=== PATIENT | female | born 2005 | race Hispanic/Latino ===

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

== ENCOUNTER 2024-03-15 16:13 | Emergency (ER) | payer OTHER, SELFPAY ==
[2024-03-15 16:14] VITALS: BP 151/93
[2024-03-15 17:34] VITALS: BP 136/97
[2024-03-15] MEDS: BENADRYL 50 MG PO (17:49)
[2024-03-15] MEDS: DELTASONE 50 MG PO (17:49)
[2024-03-15] MEDS: COMPAZINE 10 MG PO (17:49)
[2024-03-15] MEDS: TORADOL 10 MG PO (17:49)
[2024-03-15 18:00] VITALS: BP 130/84
--- NOTE | 2024-03-15 19:44 | ED.GENMED ---
History of Present Illness
General
Chief Complaint: Headache
Source: patient and family
Exam Limitations: none
Time Seen by Provider: 03/15/24 17:25
Nursing documentation reviewed up to this point in time: agreed with
History of Present Illness
History of Present Illness:
Patient is a 18-year-old female presents to the emergency department complaining of a bad headache for the past 4 days. Patient has been sound sensitive. Patient states the pain is in the back of her head and comes around to the temporal regions
and then in the back of her eyes and the piercing pain in her left eye. Patient has a history of ocular migraines that is described as sharp pain in her left eye. Patient is normally nauseous with this. Patient has been nauseous with these
headaches. Patient states she gets up in the morning about 4 hours later develops the pain. Patient when the pain is bad gets emotional waves of anxiety and depression. Patient does suffer from anxiety and depression as a baseline but states it
becomes very strong and she is crying with the pain. Patient denies any recent injuries. Patient denies fever but admits to chills. Patient does get photophobic. Patient is nauseous all the time but it gets worse with her headaches. Patient is
not vomiting. Patient denies smoking, alcohol or caffeine. Patient does do an edible at nighttime to sleep. Patient denies any focal weakness or ataxia. Patient denies any visual changes other than photophobia or speech difficulties. Patient
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 Patient has seen a neurologist in the past but not for the past couple years. Patient has had a MRI in the past but not for the past 2 years
Past History
Past History
ED Past Medical History: Psychiatric (Anxiety/depression, PTSD) and Other (High functioning autism, ocular migraines, POTS, Chiari 0 malformation)
ED Past Surgical History: Tonsilectomy and Urological
Social History
Tobacco: Non-smoker
Alcohol: None
Drug: Marijuana
Review of Systems
Review of Systems
All Other Systems: ROS reviewed and negative except as documented in HPI and ROS
Constitutional: Reports fatigue and chills; Denies fever
EENT: Denies sore throat, mouth pain or runny nose
Respiratory: Reports no symptoms
Cardiac: Reports no symptoms
ABD/GI: Reports nausea; Denies abdominal pain, vomiting, diarrhea, constipated or anorexia
: Reports no symptoms
Musculoskeletal: Reports no symptoms
Skin: Reports no symptoms
Neurological: Reports headache; Denies dizzy, weakness or numbness
Psychiatric: Reports anxiety
Phy Exam
Physical Exam
Physical Exam:
Physical Exam
General: mild distress, alert and appropriate, well nourished, well hydrated
HENT: Normocephalic with mild tenderness around the occipital tubercles bilaterally, supple with no lymphadenopathy, no thyromegaly. Mild paravertebral cervical muscle spasm without bony tenderness or deformity. Full range
of motion without pain
Eyes: Clear sclera, conjuctiva without injection, extraocular muscles intact, visual green intact
Heart: Regular rhythm and rate. No S3, S4. No murmur.
Lungs: No respiratory distress, no stridor, lung sounds clear and equal bilaterally
Abdomen: Soft, nontender, no organomegaly, no CVA tenderness, BS good
Neuro: Alert and oriented x 3, CN II - XII intact, no motor focality, no cerebellar dysfunction
Skin: no rash
Psychiatric: well kept. interactive and cooperative
Extremities: No edema, cyanosis, tenderness, Good and equal peripheral pulses.
Course
Orders/Labs/Results
Orders:
Orders
03/15/24 17:37
Diphenhydramine [Benadryl] 50 mg PO NOW STA
Prednisone [Deltasone] 50 mg PO NOW STA
Prochlorperazine [Compazine] 10 mg PO NOW STA
03/15/24 17:42
Ketorolac [Toradol] 10 mg PO NOW STA
Vital Signs
Initial and Last Documented VS:
Initial Vital Signs
Temp Pulse Resp BP Pulse Ox
98.4 F 82 18 151/93 98
03/15/24 16:14 03/15/24 16:14 03/15/24 16:14 03/15/24 16:14 03/15/24 16:14
Last Documented Vital Signs
Temp Pulse Resp BP Pulse Ox
98.4 F 82 18 130/84 99
03/15/24 16:14 03/15/24 16:14 03/15/24 16:14 03/15/24 18:00 03/15/24 18:30
*Radiology
Radiology exam reviewed: other (na)
*Pulse Oximetry
Patient hypoxic: no
*EKG
Interpreted by ED Provider?: NA
*Summer Law Clerk Interpretation
Rate: Summer Law Clerk- N/A
*Critical Care Note
Total Time (30-74mins, 75-104mins- exclusive of procedures): Not Applicable
Update Note
Update Note:
Patient is feeling better. Will place the patient on anti-inflammatories and refer to neurology.
ED Attending Note
-
Portions of this chart may have been created with voice recognition software.� Occasional wrong word or��sound alike� substitutions may have occurred due to the inherent limitations of voice recognition software.
Discharge Plan
Departure
Patient Disposition: Home (Routine Discharge)
Date of Disposition: 03/15/24
Time of Disposition: 19:51
Patient with high blood pressure during this ER visit?: No
Condition: Fair
Covid-19: Not Applicable
Discharge Problem:
Headache, Occipital neuralgia
Instructions: Headache, Adult (DC)
Prescriptions:
New
prednisone 20 mg tablet
20 mg PO BID Qty: 10 0RF
ketorolac 10 mg tablet
10 mg PO QID PRN (Reason: pain) 5 Days Qty: 20 0RF
prochlorperazine maleate [Compazine] 10 mg tablet
10 mg PO Q6H PRN (Reason: headache) Qty: 20 0RF
Rx Instructions:
Take with Benadryl 25mg
Referrals:
Binh Carmona MD [Active] - Call in 1-3 days for appt
Marina Brooks DO [Family Provider] - Follow up in 2-3 days
Interventions
Interventions:
*Risk Screen - Suicide Last Done: 03/15/24 16:14
*General Assessment Last Done: 03/15/24 16:14
*Neglect/Abuse Screening Last Done: 03/15/24 16:14
*ED COVID-19 Vaccine History Last Done: 03/15/24 16:14
ED- Neurological Assessment Last Done: 03/15/24 17:29
Discharge Date and Time
Print Language: LATVIAN
== END 2024-03-15 20:15 | disposition home or self-care (01) ==
LOC: EMR 16:13
PROVIDERS: EMERGENCY PHYSICIAN Emergency Medicine; FAMILY PHYSICIAN Pediatrics
DX: M54.81 Occipital neuralgia (principal); R51.9 Headache, unspecified
CPT/HCPCS: 99283

== ENCOUNTER 2024-03-29 19:26 | Emergency (ER) | payer OTHER, SELFPAY ==
[2024-03-29 19:30] VITALS: BP 154/101
[2024-03-29 20:16] VITALS: BMI 23.1
[2024-03-29 20:35] VITALS: BP 134/94
[2024-03-29 20:38] LABS: HCG, Urine Qualitative Screen Negative
[2024-03-29 20:40] LABS: Urine Albumin Negative (Neg - Trace); Urine Bilirubin Negative (Negative); Urine Character Slightly Cloudy (Clear); Urine Glucose Negative (Negative); Urine Ketone Negative (Negative); Urine Leukocyte Trace (Negative); Urine Nitrite Negative (Negative); Urine Occult Blood Trace (Negative); Urine Urobilinogen Negative (Neg - 1+)
[2024-03-29 20:41] LABS: Urine Color Yellow
[2024-03-29 20:49] LABS: Urine Bacteria Few (Negative); Urine Red Blood Cell 0-2 /HPF (0-2); Urine Squamous Cell 16-20 /LPF (Few)
--- NOTE | 2024-03-29 22:07 | ED.GENMED ---
History of Present Illness
General
Chief Complaint: Abdominal Symptoms
Source: patient
Exam Limitations: none
Time Seen by Provider: 03/29/24 19:54
Nursing documentation reviewed up to this point in time: agreed with
History of Present Illness
History of Present Illness:
Patient presents to ED secondary to persistent abdominal 'swelling sensation', over the past 2 days, after drinking large quantity of water. Since then, patient has had decreased appetite and whenever she tries to eat or drink, she feels recurrent
'swelling sensation,' in her stomach. Denies trauma. Denies nausea or vomiting. Patient has had normal bowel movements. Denies fever or chills. Denies previous history of similar symptoms. Denies recent illness. Denies recent change in
medications or diet.
Past History
Past History
ED Past Medical History: Psychiatric (Anxiety/depression, PTSD) and Other (High functioning autism, ocular migraines, POTS, Chiari 0 malformation)
ED Past Surgical History: Tonsilectomy and Urological
Social History
Tobacco: Non-smoker
Alcohol: None
Drug: Marijuana
Review of Systems
Review of Systems
Allergies reviewed?: Yes
All Other Systems: ROS reviewed and negative except as documented in HPI and ROS
Constitutional: Reports no symptoms
EENT: Reports no symptoms
Respiratory: Reports no symptoms
Cardiac: Reports no symptoms
ABD/GI: Reports abdominal pain; Denies vomiting or diarrhea
: Reports no symptoms
Musculoskeletal: Reports no symptoms
Skin: Reports no symptoms
Neurological: Reports no symptoms
Phy Exam
Physical Exam
Physical Exam:
Physical Exam
General: no apparent distress, not acutely ill. afebrile.
Head: nc/at. eomi
Neck: supple. normal range of motion
Heart: s1/s2 regular rate and rhythm, no murmur. equal radial pulses.
Lungs: no acute respiratory distress. clear bilaterally
Abdomen: normal bowel sounds. no focal tenderness to palpation
Neuro: alert and oriented. no focal neurological deficits
Skin: no rash
Psychiatric: well kept. interactive and cooperative
Extremities: no edema. no calf tenderness
Course
Orders/Labs/Results
Orders:
Orders
03/29/24 19:33
Electrocardiogram (*1) Urgent
Reason for Study: Vertigo / Dizzy
EKG- Treatment ONCE
03/29/24 20:11
CR Obstruct Series W/pa Chest Urgent
Comment:
Reason For Exam: abdominal pain
03/29/24 20:12
0.9% Sodium Chloride 500 ml [Nss] 500 ml IV BOLUS
Test Result ONCE
03/29/24 20:30
HCG, Urine Qualitative Screen Urgent
Date Specimen was Collected: 03/29/24
Time Specimen was Collected: 20:20
Urinalysis Reflex To Culture Urgent
Date Specimen was Collected: 03/29/24
Time Specimen was Collected: 20:20
Urine Microscopic Reflex Cult Urgent
Abnormal Lab Results
03/29/24
20:30
Ur Occult Blood Reflex Trace A
(Negative)
Leukocyte Esterase Rfl Trace A
(Negative)
Urine Bacteria (Reflex) Few A
(Negative)
03/29/24 20:12
03/29/24 20:12
Vital Signs
Initial and Last Documented VS:
Initial Vital Signs
Temp Pulse Resp BP Pulse Ox
98.1 F 110 19 154/101 100
03/29/24 19:30 03/29/24 19:30 03/29/24 19:30 03/29/24 19:30 03/29/24 19:30
Last Documented Vital Signs
Temp Pulse Resp BP Pulse Ox
98.6 F 91 18 136/97 95
03/29/24 22:03 03/29/24 22:09 03/29/24 22:09 03/29/24 22:09 03/29/24 22:09
MDM/Problems Addressed
MDM/Problems Addressed:
Patient presenting with nonspecific abdominal discomfort, with benign abdominal exam. Discussed treatment options, including blood work and x-ray, along with urine study. Although initially agreed upon, patient unable to tolerate blood draw, as
patient is 'afraid of needles'. As such, decision made to withhold blood work.
X-ray without any acute findings. Urinalysis without any acute abnormalities. At this time, patient feels going home, with recommendation to admit utilize a bland diet along with hydration, as well as PCP follow-up as an outpatient. Patient
advised to consider returning to ED with significantly worsening symptoms. Patient expresses understanding, at time of discharge, to the care of her mother.
*Critical Care Note
Total Time (30-74mins, 75-104mins- exclusive of procedures): Not Applicable
ED Attending Note
-
Portions of this chart may have been created with voice recognition software.� Occasional wrong word or��sound alike� substitutions may have occurred due to the inherent limitations of voice recognition software.
Discharge Plan
Departure
Patient Disposition: Home (Routine Discharge)
Date of Disposition: 03/29/24
Time of Disposition: 22:07
Patient with high blood pressure during this ER visit?: Yes
Condition: Good
Discharge Problem:
Abdominal pain
Instructions: Abdominal Pain
Prescriptions:
No Action
prednisone 20 mg tablet
20 mg PO BID Qty: 10 0RF
ketorolac 10 mg tablet
10 mg PO QID PRN (Reason: pain) 5 Days Qty: 20 0RF
prochlorperazine maleate [Compazine] 10 mg tablet
10 mg PO Q6H PRN (Reason: headache) Qty: 20 0RF
Rx Instructions:
Take with Benadryl 25mg
Referrals:
UNKNOWN - PT NOT,INTERVIEWE [Family Provider] -
Activity Restrictions/Additional Instructions:
As discussed, please follow-up with your primary care physician with any further concerns.
Interventions
Interventions:
*Risk Screen - Suicide Last Done: 03/29/24 20:15
*General Assessment Last Done: 03/29/24 20:15
*Neglect/Abuse Screening Last Done: 03/29/24 20:15
*ED COVID-19 Vaccine History Last Done: 03/29/24 20:15
*Nursing Disposition Last Done: 03/29/24 22:17
KX-[id number]-[id number] Assessment Last Done: 03/29/24 20:20
Discharge Date and Time
Discharge Date/Time: 03/29/24 22:18
Print Language: FIJIAN
[2024-03-29 22:09] VITALS: BP 136/97
== END 2024-03-29 22:18 | disposition home or self-care (01) ==
LOC: EMR 19:26
PROVIDERS: EMERGENCY PHYSICIAN Emergency Medicine
DX: R10.9 Unspecified abdominal pain (principal); F84.0 Autistic disorder
CPT/HCPCS: 99284; 74022; 81003; 81015; 81025; 93005